=== PATIENT | female | born 1995 | race Two or more races ===

== ENCOUNTER 2017-02-22 14:48 | Emergency (ER) | payer OTHER, MEDICAID ==
[~2017-02-22] VITALS: Ht 157.5 cm; Wt 49.9 kg
[2017-02-22 15:01] VITALS: BP 117/63
== END 2017-02-22 19:44 | disposition left against medical advice (07) ==
LOC: ER 14:48
DX: R55 Syncope and collapse (principal); Z53.21 Procedure and treatment not carried out due to patient leaving prior to being seen by health care provider
CPT/HCPCS: 93005

== ENCOUNTER 2022-01-04 14:11 | Observation (INO) | payer MEDICAID ==
[~2022-01-04] VITALS: Ht 157.5 cm; Wt 69.4 kg
[2022-01-04] MEDS ORDERED: LACTATED RINGER'S 1,000 ML IV ONE (14:45)
[2022-01-04] MEDS ORDERED: ceFAZolin 2 GM in D5W 5% 100 ML IV ONE (14:45)
[2022-01-04] MEDS ORDERED: ACETAMINOPHEN 325 MG TAB PO ONE (14:45)
[2022-01-04 15:07] LABS: Urine Bacteria NONE SEEN /hpf (None Seen); Urine Blood Negative /uL (Negative); Urine Mucus FEW (None Seen); Urine Specific Gravity 1.027 (1.001-1.035); Urine WBC 11 /hpf (0 - 5)
[2022-01-04 15:31] LABS: Amphetamine Screen, Urine NEGATIVE (NEGATIVE); Barbiturate Scree,Urine NEGATIVE (NEGATIVE); Benzodiazephine Screen, Urine NEGATIVE (NEGATIVE); Cannabinoid Screen, Urine POSITIVE (NEGATIVE); Cocaine Screen, Urine NEGATIVE (NEGATIVE); Opiate Scree,Urine NEGATIVE (NEGATIVE); Phencyclidine Screen, Urine NEGATIVE (NEGATIVE)
[2022-01-04] MEDS ORDERED: PREN-96 OR (18:55)
== END 2022-01-04 19:10 | disposition home or self-care (01) ==
LOC: UNDOADMOB 14:11 → LDRP 14:11
PROVIDERS: ADMIT Obstetrics & Gynecology; ATTEND Obstetrics & Gynecology
DX: O26.892 Other specified pregnancy related conditions, second trimester (principal); Z20.822 Contact with and (suspected) exposure to COVID-19; R10.13 Epigastric pain; R42 Dizziness and giddiness; N89.8 Other specified noninflammatory disorders of vagina; O99.891 Other specified diseases and conditions complicating pregnancy; M54.9 Dorsalgia, unspecified; O62.9 Abnormality of forces of labor, unspecified; R51.9 Headache, unspecified; O21.2 Late vomiting of pregnancy; Z3A.24 24 weeks gestation of pregnancy; Z79.899 Other long term (current) drug therapy
CPT/HCPCS: 36415; 59025; 80307; 81001; 81002; 87426; 87804; 94762; 96361; 96365; G0378; J0690; J7060; 96360